=== PATIENT | male | born 1980 | race Caucasian/White ===

== ENCOUNTER 2018-11-14 16:42 | Inpatient (IN) ==
[2018-11-14] MEDS ORDERED: HYDROmorphone 2 MG/1 ML VIAL IV STA (20:04)
[2018-11-14] MEDS ORDERED: ONDANSETRON 4 MG/2 ML VIAL IV STA (20:05)
[2018-11-14] MEDS ORDERED: ONDANSETRON 4 MG/2 ML VIAL ONE ×3 (20:06→23:54)
[2018-11-14 21:08] LABS: Basophils # 0.1 10*3/uL (0.0-0.2); Basophils % 0.3 % (0.0-0.8); Eosinophils # 0.1 10*3/uL (0.0-0.87); Eosinophils % 0.5 % (0.00-10.9); Hematocrit 49.5 VOL% (42.0-52.0); Hemoglobin 15.8 GM/DL (14.0-18.0); Immature Granulocytes % 0.6 %; Immature Granulocytes Absolute 0.13 #; Lymphocytes # 2.4 10*3/uL (1.4-4.0); Lymphocytes % 10.8 % (21.2-54.2); Mean Corpuscular HGB Conc 31.9 GM/DL (32-36); Mean Corpuscular Hemoglobin 26 PG (27-34); Mean Corpuscular Volume 81.4 FL (87-102); Mean Platelet Volume 10.9 FL (9.6-12.0); Monocytes # 0.9 10*3/uL (0.11-0.8); Neutrophils # 18.2 10*3/uL (1.4-7.4); Neutrophils % 83.8 % (38.7-73.9); Platelet Count 367 T/CUMM (130-400); Red Blood Count 6.08 MC/CUMM (3.8-5.5); Red Cell Distribution Width 14.3 % (9.3-17.3); White Blood Count 21.8 T/CUMM (4-12)
[2018-11-14 21:19] LABS: Osmolality,Calculated 273.7 MOS/KG (273-304); Potassium 4.4 MMOL/L (3.5-5.1)
[2018-11-14] MEDS ORDERED: PROPOFOL 0 MG/0 ML BOTTLE IV ONE (21:22)
[2018-11-14] MEDS ORDERED: BUPIVACAINE SPINAL 0.75% 2 ML AMP SPINAL ONE (21:22)
[2018-11-14] MEDS ORDERED: MAGNESIUM HYDROXIDE SUSP 30 ML UDCUP PO PRN ×2 (21:36→21:44)
[2018-11-14] MEDS ORDERED: ceFAZolin 1,000 MG VIAL ONE ×2 (21:40→22:17)
[2018-11-14 21:59] LABS: Albumin 4.3 G/DL (3.4-5.0); Bilirubin,Total 0.5 MG/DL (0.2-1.0); Calcium 9.3 MG/DL (8.5-10.1); Osmolality,Calculated 276.5 MOS/KG (273-304); Potassium 4.3 MMOL/L (3.5-5.1); Total Protein 7.5 G/DL (6.4-8.3)
[2018-11-14] MEDS: HYDROmorphone 2 MG/1 ML VIAL IV PRN (23:48)
[2018-11-14] MEDS ORDERED: HYDROmorphone 2 MG/1 ML VIAL ONE (23:51)
[2018-11-14] MEDS ORDERED: PROPOFOL 200 MG/20 ML VIAL IV ONE (23:53)
[2018-11-14] MEDS ORDERED: DESFLURANE 1 UNIT/15 MINUTE INH ONE (23:53)
[2018-11-14] MEDS ORDERED: ROCURONIUM 100 MG/10 ML VIAL IV ONE (23:54)
[2018-11-14] MEDS ORDERED: LACTATED RINGERS 1,000 ML IV ONE (23:54)
[2018-11-14] MEDS ORDERED: MIDAZOLAM 2 MG/2 ML VIAL ONE (23:54)
[2018-11-14] MEDS ORDERED: fentaNYL 100 MCG/2 ML VIAL ONE (23:54)
[2018-11-14] MEDS ORDERED: GLYCOPYRROLATE 0.4 MG/2 ML VIAL ONE (23:54)
[2018-11-14] MEDS ORDERED: NEOSTIGMINE 10 MG/10 ML VIAL ONE (23:54)
[2018-11-14] MEDS ORDERED: ACETAMINOPHEN 1,000 MG/100 ML VIAL IV ONE (23:54)
[2018-11-14] MEDS ORDERED: ONDANSETRON 4 MG/2 ML VIAL IV PRN (23:55)
[2018-11-15] MEDS: HYDROmorphone 2 MG/1 ML VIAL IV PRN ×3 (00:03→00:17)
[2018-11-15] MEDS ORDERED: MORPHINE 4 MG/1 ML VIAL IV PRN (00:14)
[2018-11-15] MEDS ORDERED: ONDANSETRON 4 MG/2 ML VIAL IV PRN (00:14)
[2018-11-15] MEDS ORDERED: hydrALAZINE 20 MG/1 ML VIAL ONE (00:25)
[2018-11-15] MEDS ORDERED: hydrALAZINE 20 MG/1 ML VIAL IV ONE (00:28)
[2018-11-15] MEDS ORDERED: ENOXAPARIN 40 MG/0.4 ML SYRINGE SUBCUT SCH (09:00)
[2018-11-15] MEDS: oxyCODONE/ACETAMINOPHEN 5-325 MG TABLET PO PRN ×2 (10:11→11:47)
[2018-11-15 15:54] VITALS: BP 161/90
== END 2018-11-15 17:05 | disposition home health service (06) | DRG 482 ==
LOC: N.ED 16:42 → N.EDINP 21:50 → N.3E 22:08
PROVIDERS: ADMIT Orthopaedic Surgery; ATTEND Orthopaedic Surgery